=== PATIENT | female | born 1975 | race Caucasian/White ===

== ENCOUNTER 2018-01-31 08:15 | Emergency (ER) | payer MEDICAID ==
[~2018-01-31] VITALS: Ht 172.7 cm; Wt 54.0 kg
[2018-01-31 08:15] VITALS: BP_SYST 110
--- NOTE | 2018-01-31 08:15 | NUR ---
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 Pt in cuffs, arrested for spousal battery. Pt here for medical clearance r/t chronic lower back pain. No apparant injuries or trauma noted.
--- NOTE | 2018-01-31 08:30 | NUR ---
at bedside to assess pt.
[2018-01-31] MEDS ORDERED: IBUPROFEN 600 MG TABLET PO ONE (08:45)
--- NOTE | 2018-01-31 08:51 | NUR ---
Pt medicated for L back pain 6/10 on pain scsale and tolerated well; will continue to monitor.
[2018-01-31 09:00] VITALS: BP_SYST 112
--- NOTE | 2018-01-31 09:00 | NUR ---
Patient given written and verbal discharge instructions and verbalizes understanding. ER MD discussed with patient the results and treatment provided. Patient in stable condition. ID arm band removed. No Rx given. Patient educated on pain management and to follow up with PMD. Pain Scale 2/10. Opportunity for questions provided and answered. Medication side effect fact sheet provided.
== END 2018-01-31 09:00 | disposition home or self-care (01) ==
LOC: SED 08:15
DX: S66.911A Strain of unspecified muscle, fascia and tendon at wrist and hand level, right hand, initial encounter (principal); S30.0XXA Contusion of lower back and pelvis, initial encounter; Y08.89XA Assault by other specified means, initial encounter; Y93.89 Activity, other specified; Y92.89 Other specified places as the place of occurrence of the external cause; Y99.8 Other external cause status
CPT/HCPCS: 99282